=== PATIENT | male | born 1935 | race Two or more races ===

== ENCOUNTER 2017-07-11 10:44 | Outpatient (CLI) | payer OTHER | END 2017-07-11 11:14 | disposition home or self-care (01) | LOC: MRI 10:44 | DX: I63.039 Cerebral infarction due to thrombosis of unspecified carotid artery (principal) | CPT/HCPCS: 70551 ==

== ENCOUNTER 2018-04-11 09:13 | Emergency (ER) | payer OTHER ==
[~2018-04-11] VITALS: Ht 162.6 cm; Wt 64.4 kg
[2018-04-11] MEDS ORDERED: SYNTHROID75 MCG (09:22)
== END 2018-04-11 16:09 | disposition home or self-care (01) ==
LOC: ER 09:13
DX: R10.31 Right lower quadrant pain (principal)

== ENCOUNTER 2019-02-23 11:05 | Outpatient (CLI) | payer OTHER ==
[~2019-02-23 11:05] MED LIST: SYNTHROID75 MCG
== END 2019-02-23 12:44 | disposition home or self-care (01) ==
LOC: TOM 11:05
DX: R42 Dizziness and giddiness (principal); R51 Headache; R41.2 Retrograde amnesia

== ENCOUNTER 2024-04-27 12:50 | Inpatient (IN) | payer OTHER ==
[~2024-04-27] VITALS: Ht 165.1 cm; Wt 60.3 kg
[2024-04-27] MEDS ORDERED: ANTIVERT25 M2 (13:08)
--- NOTE | 2024-04-27 13:08 | NUR ---
PACIENTE ALERTA Y ORIENTADO X3.PACIENTE REFIERE MAREOS Y DEVILIDA CONTASTE.S/V ESTABLE DENDRO DE FITZPATRICK CONDICION .SE LE REALZA EKG .PACIENTE EN ESPERA DE EVALUACION MEDICA.
--- NOTE | 2024-04-27 13:43 | NUR ---
PACIENTE ALERTA Y ORIENTADA X3, SE ORIENTA SOBRE TRATAMIENTO MEDICO INDICA ENTENDER Y ACEPTAR. SE REALIZA CANALIZACION BAJO MEDIDAS ASEPTICAS Y SE ADMINISTRA MEDICAMENTO LETICIA ORDEN MEDICA.
--- NOTE | 2024-04-27 14:32 | NUR ---
SE ORIENTA A PACIENTE SOBRE TRATAMIENTO MEDICO, REFIERE ENTENDER. SE COLECTAN MUESTRAS DE LABORATORIO Y SE CANALIZA A PACIENTE BAJO MEDIDAS ASEPTICAS. SE ENTREGA ENVASE PARA U/A. SE NOTIFICA ESTUDIO ECHO PENDIENTE.
[2024-04-27 14:50] LABS: MEAN CORPUSCULAR HGB CONC 33.9 g/dl (32.0-36.0); PLATELET COUNT 141 K/uL (150-450); RED BLOOD COUNT 1.25 M/uL (4.00-6.00)
[2024-04-27 14:51] LABS: MEAN CORPUSCULAR HEMOGLOBIN 36.8 pg (27.00-32.0)
[2024-04-27 14:52] LABS: HEMOGLOBIN 4.6 g/dL (13-16.00)
[2024-04-27 14:53] LABS: HEMATOCRIT 13.7 % (39.0-48.0)
[2024-04-27 15:01] LABS: BILIRUBIN TOTAL 0.58 mg/dL (0.3-1.2); BILIRUBIN,CONJUGATED 0.22 mg/dL (0.0-0.2); BILIRUBIN,UNCONJUGATED 0.36 mg/dL (0.0-0.6); CALCIUM 8.5 mg/dL (8.5-10.1); CREATININE SERUM 1.01 mg/dL (0.70-1.30); GFR 69.55; GLOBULINA 3.2 G/DL (2.4-3.5); POTASSIUM 3.88 mEq/L (3.5-5.1); TOTAL PROTEIN 6.2 gm/dL (6.4-8.2)
[2024-04-27 15:16] LABS: INR 1.21; PARTIAL THROMBOPLASTIN TIME 25.4 SECONDS (22.0-34.0)
--- NOTE | 2024-04-27 15:23 | NUR ---
SE BERTIN CONSENTIMIENTO DE TRANSFUCION DE TRANSFUCION MD FIRMA CONSENTIMIENTO DE TRANSFUCION. SE REQUISA 4 UNIDADES DE PRBC. SE BERTIN TUBOS PILOS. SE CANALIZA EN YONIS BROOKS # 20. SE ORIENTA A FAMILIAR SOBRE EL PROCESO DE TRANSFUCION Y ESTOS REFIERE ENTENDER
[2024-04-27 15:31] LABS: RED CELL DISTRIBUTION WIDTH 19.1 % (11.5-14.5)
[2024-04-27 15:36] LABS: URINE APPEARANCE Clear; URINE BILIRRUBIN Negative (NEGATIVE); URINE BLOOD Negative; URINE COLOR Yellow; URINE GLUCOSE Negative (NEGATIVE); URINE KETONE Negative (NEGATIVE); URINE LEUKOCYTE Small; URINE NITRATE Negative; URINE PROTEIN Trace (NEGATIVE)
[2024-04-27 15:37] LABS: URINE BACTERIA 412.2 uL (0.0-1933); URINE CAST 1.62 uL (0.0-1.40); URINE WBC 146.4 uL (0.0-23.2)
[2024-04-27 15:38] LABS: URINE RBC 1.3 uL (0.0-20.8)
--- NOTE | 2024-04-27 15:49 | NUR ---
SE CAMBIA REQUISICION DE JULIANNE A FRACCIONADO POR ORDEN DE DR. WARREN
[2024-04-27] MEDS ORDERED: 0.9 % SODIUM CHLORIDE 1,000 ML IV SCH (18:30)
[2024-04-27] MEDS ORDERED: PANTOPRAZOLE SODIUM 40 MG/VIAL VIAL IV SCH (18:30)
[2024-04-27] MEDS ORDERED: ONDANSETRON HCL 4 MG in 0.9 % SODIUM CHLORIDE 50 ML IV PRN (18:30)
[2024-04-27] MEDS ORDERED: FUROsemide 20 MG/2 ML VIAL IV SCH (18:45)
[2024-04-27 20:37] VITALS: BP 112/58; O2SAT 100
[2024-04-27] MEDS ORDERED: METHYLPREDNISOLONE SOD SUCC 125 MG VIAL IV SCH (21:39)
[2024-04-27 22:20] VITALS: BP 151/75
[2024-04-27 23:50] VITALS: BP 119/58; O2SAT 96
[2024-04-28] VITALS (8 sets, daily range): BP systolic 133–138; BP diastolic 62–65; O2SAT 90–100
[2024-04-28] MEDS ORDERED: LEVOTHYROXINE SODIUM 50 MCG TABLET PO SCH (06:00)
[2024-04-28] MEDS ORDERED: LOSARTAN POTASSIUM 50 MG TABLET PO SCH (09:00)
[2024-04-28] MEDS ORDERED: RINGERS SOLUTION,LACTATED 1,000 ML IV SCH (14:00)
[2024-04-28] MEDS ORDERED: DONEPEZIL HCL 10 MG TABLET PO SCH (17:00)
[2024-04-28] MEDS ORDERED: SIMVASTATIN 20 MG TABLET PO SCH (17:00)
[2024-04-28 20:19] LABS: TSH 1.2 uIU/mL (0.358-3.74)
[2024-04-29] VITALS (9 sets, daily range): BP systolic 125–136; BP diastolic 65–70; O2SAT 90–97
[2024-04-29] MEDS ORDERED: MAGNESIUM HYDROXIDE 30 ML BLIST.PACK PO NR (12:40)
[2024-04-29] MEDS ORDERED: MINERAL OIL 30 ML BLIST.PACK PO NR (12:40)
[2024-04-29] MEDS ORDERED: LACTULOSE 20 G/30 ML BLIST.PACK PO NR (12:40)
[2024-04-29 15:41] LABS: ALBUMIN 2.8 gm/dL (3.4-5.0); BILIRUBIN TOTAL 1.03 mg/dL (0.3-1.2); CALCIUM 8.1 mg/dL (8.5-10.1); CREATININE SERUM 0.91 mg/dL (0.70-1.30); GFR 78.45; GLOBULINA 2.7 G/DL (2.4-3.5); MAGNESIUM 1.5 mg/dL (1.8-2.4); PHOSPHOROUS 3.4 mg/dL (2.5-4.9); POTASSIUM 3.41 mEq/L (3.5-5.1); TOTAL PROTEIN 5.5 gm/dL (6.4-8.2)
[2024-04-29 16:11] LABS: HEMATOCRIT 24.4 % (39.0-48.0); MEAN CELL VOLUME 94.5 fL (80.0-100.00); MEAN CORPUSCULAR HGB CONC 34.9 g/dl (32.0-36.0); RED BLOOD COUNT 2.58 M/uL (4.00-6.00); RED CELL DISTRIBUTION WIDTH 19.1 % (11.5-14.5)
[2024-04-29 16:12] LABS: HEMOGLOBIN 8.5 g/dL (13-16.00); MEAN CORPUSCULAR HEMOGLOBIN 32.9 pg (27.00-32.0); PLATELET COUNT 123 K/uL (150-450)
[2024-04-29] MEDS ORDERED: CEFTRIAXONE SODIUM 2,000 MG VIAL IV STA (16:36)
[2024-04-29] MEDS ORDERED: MAGNESIUM SULFATE IN WATER 2 GM/50 ML PIGGYBAG IV STA (17:57)
[2024-04-29] MEDS ORDERED: POTASSIUM BICARBONATE/CIT AC 25 MEQ TABLET.EFF PO NR (18:00)
[2024-04-29] MEDS ORDERED: POTASSIUM CHLORIDE 20MEQ/100ML H2O PB IV NR (20:00)
[2024-04-29] MEDS ORDERED: PIPERACILLIN/TAZOBACTAM SODIUM 3.375 GM VIAL IV SCH (20:00)
[2024-04-29 20:44] LABS: ob POSITIVE (NEGATIVE)
[2024-04-29] MEDS ORDERED: IRON FUM,PS/FOLIC/BCOMP,C NO.9 1 CAP CAPSULE PO SCH (21:00)
[2024-04-29] MEDS ORDERED: DOCUSATE SODIUM 100MG CAP PO SCH (21:00)
[2024-04-30] VITALS (7 sets, daily range): BP systolic 122–154; BP diastolic 60–75; O2SAT 97–100
[2024-04-30] MEDS ORDERED: CEFTRIAXONE SODIUM 2,000 MG VIAL IV SCH (09:00)
[2024-04-30 10:37] LABS: PLATELET ESTIMATE DECREASED (NORMAL)
[2024-04-30] MEDS ORDERED: IRBESARTAN 75 MG TABLET PO NR (13:00)
[2024-04-30 13:10] LABS: FOLIC ACID 7.9 ng/ml (4.78-20)
[2024-04-30 13:30] LABS: HEMATOCRIT 32.7 % (39.0-48.0); HEMOGLOBIN 11.4 g/dL (13-16.00); MEAN CELL VOLUME 92.9 fL (80.0-100.00); MEAN CORPUSCULAR HEMOGLOBIN 32.5 pg (27.00-32.0); MEAN CORPUSCULAR HGB CONC 34.9 g/dl (32.0-36.0); RED BLOOD COUNT 3.52 M/uL (4.00-6.00); RED CELL DISTRIBUTION WIDTH 17.6 % (11.5-14.5)
[2024-04-30 13:35] LABS: PLATELET COUNT 103 K/uL (150-450)
[2024-04-30] MEDS ORDERED: CYANOCOBALAMIN (VITAMIN B-12) 1,000 MCG TABLET PO NR (15:30)
[2024-05-01 00:41] VITALS: BP 128/72; O2SAT 97
[2024-05-01 07:18] LABS: HEMATOCRIT 32.8 % (39.0-48.0); HEMOGLOBIN 11.7 g/dL (13-16.00); MEAN CELL VOLUME 91.7 fL (80.0-100.00); MEAN CORPUSCULAR HEMOGLOBIN 32.7 pg (27.00-32.0); MEAN CORPUSCULAR HGB CONC 35.7 g/dl (32.0-36.0); RED BLOOD COUNT 3.58 M/uL (4.00-6.00); RED CELL DISTRIBUTION WIDTH 17.7 % (11.5-14.5)
[2024-05-01 07:28] LABS: PLATELET COUNT 103 K/uL (150-450)
[2024-05-01 07:52] LABS: ALBUMIN 2.6 gm/dL (3.4-5.0); BILIRUBIN TOTAL 0.83 mg/dL (0.3-1.2); CREATININE SERUM 0.97 mg/dL (0.70-1.30); GFR 72.87; GLOBULINA 2.9 G/DL (2.4-3.5); MAGNESIUM 2.1 mg/dL (1.8-2.4); PHOSPHOROUS 2.9 mg/dL (2.5-4.9); POTASSIUM 3.65 mEq/L (3.5-5.1); TOTAL PROTEIN 5.5 gm/dL (6.4-8.2)
[2024-05-01] MEDS ORDERED: IRBESARTAN 75 MG TABLET PO SCH (09:00)
[2024-05-01] MEDS ORDERED: CYANOCOBALAMIN (VITAMIN B-12) 1,000 MCG TABLET PO SCH (09:00)
[2024-05-01 09:01] VITALS: BP 123/62
[2024-05-01] MEDS ORDERED: AMOX1TAB5 PO (12:55)
[2024-05-01] MEDS ORDERED: ABANEU-SL TABL1 EACH SL (12:55)
[2024-05-01] MEDS ORDERED: INTESTINEX680 M1 PO (12:55)
== END 2024-05-01 13:20 | disposition home or self-care (01) | DRG 812 ==
LOC: ER 12:53 → MEDI 20:03
PROVIDERS: Emergency Medicine; General Practice; ADMIT Internal Medicine; ATTEND Internal Medicine
PROC: 30233N1 Transfusion of Nonautologous Red Blood Cells into Peripheral Vein, Percutaneous Approach (ICD-10-PCS; 2024-04-27)
PROC: BW28ZZZ Computerized Tomography (CT Scan) of Head (ICD-10-PCS; 2024-04-27)
PROC: 4A12X4Z Monitoring of Cardiac Electrical Activity, External Approach (ICD-10-PCS; principal; 2024-04-28)
PROC: BW21YZZ Computerized Tomography (CT Scan) of Abdomen and Pelvis using Other Contrast (ICD-10-PCS; 2024-04-28)
PROC: B24BZZZ Ultrasonography of Heart with Aorta (ICD-10-PCS; 2024-04-28)
DX: D64.9 Anemia, unspecified (principal); N39.0 Urinary tract infection, site not specified; J90 Pleural effusion, not elsewhere classified; R55 Syncope and collapse; E87.6 Hypokalemia; I48.0 Paroxysmal atrial fibrillation; I10 Essential (primary) hypertension; E03.9 Hypothyroidism, unspecified; D69.6 Thrombocytopenia, unspecified; D53.9 Nutritional anemia, unspecified; B95.2 Enterococcus as the cause of diseases classified elsewhere; D53.1 Other megaloblastic anemias, not elsewhere classified; N20.0 Calculus of kidney; Z91.81 History of falling

== ENCOUNTER 2024-05-27 17:50 | Inpatient (IN) | payer OTHER ==
[~2024-05-27] VITALS: Ht 165.1 cm; Wt 60.3 kg
[~2024-05-27 17:50] MED LIST changes: +ABANEU-SL TABL1 EACH SL; +AMOX1TAB5 PO; +ANTIVERT25 M2; +INTESTINEX680 M1 PO
[2024-05-27] MEDS ORDERED: LOSARTAN POTASS50 MG PO (18:21)
--- NOTE | 2024-05-27 18:22 | NUR ---
SE RECIBE PTE ALERTA, ORIENTADO X3. PTE REFIERE HEMOGLOBINA EN 7 LETICIA RESULTADO DE LABORATORIO REALIZADO EL SERENITY DE HOY. SE MIDEN S/V Y SE UBICA.
--- NOTE | 2024-05-27 18:49 | NUR ---
PTE EVALUADO POR LA DRA. READ. RN PRUITT CANALIZA Y COLECTA MUESTRAS DE LAB LETICIA ORDEN MEDICA BAJO MEIDDAS ASEPTICAS. SE NOTIFICA XRAY PENDINETE.
[2024-05-27 18:55] LABS: MEAN CELL VOLUME 93.2 fL (80.0-100.00); PLATELET COUNT 177 K/uL (150-450); RED CELL DISTRIBUTION WIDTH 17.8 % (11.5-14.5)
[2024-05-27 19:08] LABS: MEAN CORPUSCULAR HEMOGLOBIN 31.7 pg (27.00-32.0)
[2024-05-27 19:09] LABS: HEMATOCRIT 21.4 % (39.0-48.0)
[2024-05-27 19:11] LABS: HEMOGLOBIN 7.3 g/dL (13-16.00)
[2024-05-27 19:13] LABS: INR 1.11; PARTIAL THROMBOPLASTIN TIME 26.8 SECONDS (22.0-34.0)
[2024-05-27 19:17] LABS: ALBUMIN 3.3 gm/dL (3.4-5.0); BILIRUBIN TOTAL 0.53 mg/dL (0.3-1.2); CALCIUM 8.6 mg/dL (8.5-10.1); CREATININE SERUM 0.87 mg/dL (0.70-1.30); GFR 82.62; GLOBULINA 3.4 G/DL (2.4-3.5); TOTAL PROTEIN 6.7 gm/dL (6.4-8.2)
[2024-05-27 20:12] LABS: URINE APPEARANCE Clear; URINE BILIRRUBIN Negative (NEGATIVE); URINE BLOOD Negative; URINE COLOR Dark Yellow; URINE GLUCOSE Negative (NEGATIVE); URINE KETONE Negative (NEGATIVE); URINE LEUKOCYTE Moderate; URINE NITRATE Negative; URINE PROTEIN Trace (NEGATIVE)
[2024-05-27 20:16] LABS: URINE BACTERIA 532.3 uL (0.0-1933); URINE EPITHELIAL CELLS 8.3 uL (0.0-38.8); URINE WBC 274.5 uL (0.0-23.2)
--- NOTE | 2024-05-27 20:22 | NUR ---
SE NELDA TUBOS PILOTOS Y SE REQUISA 2 UNIDADES DE PRBC. SE LLENA REQUISION Y SE LLEVA A LABORATORIO. PTE FIRMA COSENTIMINETO Y SE COLOCA EN RECOR DE PTE. PTE SON RECORD PREVIO EN BANCO DE JULIANNE.
[2024-05-27 20:45] LABS: URINE CAST 1.32 uL (0.0-1.40); URINE RBC 1.1 uL (0.0-20.8)
[2024-05-27] MEDS ORDERED: PANTOPRAZOLE SODIUM 40 MG/VIAL VIAL IV SCH (21:34)
[2024-05-27] MEDS ORDERED: ACETAMINOPHEN 500 MG GEL..CAP PO PRN (21:45)
[2024-05-27] MEDS ORDERED: 0.9 % SODIUM CHLORIDE 1,000 ML IV SCH (21:45)
[2024-05-27] MEDS ORDERED: FUROsemide 20 MG/2 ML VIAL IV SCH (22:00)
[2024-05-27 23:54] VITALS: BP 148/55
[2024-05-28 02:46] VITALS: BP 116/61; O2SAT 97
[2024-05-28 07:25] LABS: MEAN CELL VOLUME 92.5 fL (80.0-100.00); MEAN CORPUSCULAR HGB CONC 34.9 g/dl (32.0-36.0); PLATELET COUNT 171 K/uL (150-450); RED BLOOD COUNT 2.01 M/uL (4.00-6.00); RED CELL DISTRIBUTION WIDTH 17.4 % (11.5-14.5)
[2024-05-28 07:34] LABS: MEAN CORPUSCULAR HEMOGLOBIN 32.3 pg (27.00-32.0)
[2024-05-28 07:45] LABS: HEMATOCRIT 18.6 % (39.0-48.0); HEMOGLOBIN 6.5 g/dL (13-16.00)
[2024-05-28] MEDS ORDERED: LOSARTAN POTASSIUM 50 MG TABLET PO SCH (09:00)
[2024-05-28 09:56] VITALS: BP 124/63; O2SAT 98
[2024-05-28 17:07] VITALS: BP 121/64
[2024-05-28] MEDS ORDERED: PANTOPRAZOLE SODIUM 40 MG/VIAL VIAL IV SCH (21:00)
[2024-05-29 01:30] VITALS: BP 133/71; O2SAT 94
[2024-05-29 08:20] VITALS: BP 149/74; O2SAT 92
[2024-05-29 09:24] LABS: HEMOGLOBIN 11.1 g/dL (13-16.00); MEAN CELL VOLUME 87.8 fL (80.0-100.00); MEAN CORPUSCULAR HEMOGLOBIN 30.3 pg (27.00-32.0); MEAN CORPUSCULAR HGB CONC 34.5 g/dl (32.0-36.0); PLATELET COUNT 162 K/uL (150-450); RED BLOOD COUNT 3.65 M/uL (4.00-6.00); RED CELL DISTRIBUTION WIDTH 16.4 % (11.5-14.5)
[2024-05-29 11:18] LABS: ob NEGATIVE (NEGATIVE)
[2024-05-29] MEDS ORDERED: INTEGRA PLUS C1 EACH PO (14:17)
[2024-05-29] MEDS ORDERED: COZAAR50 MG PO (14:17)
[2024-05-31 13:36] LABS: FOLIC ACID 19.4 ng/ml (4.78-20)
== END 2024-05-29 15:10 | disposition home or self-care (01) | DRG 812 ==
LOC: ER 17:52 → MEDI 22:03
PROVIDERS: General Practice; ADMIT Internal Medicine; ATTEND Internal Medicine
PROC: BW21ZZZ Computerized Tomography (CT Scan) of Abdomen and Pelvis (ICD-10-PCS; principal; 2024-05-27)
DX: D64.9 Anemia, unspecified (principal); I10 Essential (primary) hypertension

== ENCOUNTER 2024-06-22 14:44 | Inpatient (IN) | payer OTHER ==
[~2024-06-22] VITALS: Ht 167.6 cm; Wt 58.1 kg
[~2024-06-22 14:44] MED LIST changes: +COZAAR50 MG PO; +INTEGRA PLUS C1 EACH PO; +LOSARTAN POTASS50 MG PO
--- NOTE | 2024-06-22 15:45 | NUR ---
PTE ALERTA Y ORIENTADO EN COMPANIA DE FITZPATRICK HIJA VIENE A GURPREET POR ORDEN MEDICA POR EL MD. GOODMAN EL PTE TONA 7.4 DE HEMOGLOBINA S CITLALI NELDA S/V Y SE UBICA
--- NOTE | 2024-06-22 17:40 | NUR ---
SE EDUCA A PTE SOBRE TX MEDICO, SE NELDA MUESTRAS DE LABORATORIO UTILIZANDO MEDIDAS ASEPTICAS. SE COLOCA H/L ALYSSA DE EDEMA. SE NOTIFICA ESTUDIO DE RX PENDIENTE.
[2024-06-22 17:55] LABS: ALBUMIN 3.5 gm/dL (3.4-5.0); BILIRUBIN TOTAL 0.46 mg/dL (0.3-1.2); CALCIUM 8.5 mg/dL (8.5-10.1); CREATININE SERUM 0.86 mg/dL (0.70-1.30); GFR 83.73; GLOBULINA 3.7 G/DL (2.4-3.5); POTASSIUM 4.2 mEq/L (3.5-5.1); TOTAL PROTEIN 7.2 gm/dL (6.4-8.2)
[2024-06-22 17:58] LABS: BASO % 0.1 % (0.1-1.2); EOS # 0.12 (0.04-0.54); EOS % 1.7 % (0.7-7.0); LYMPH # 4.73 (1.18-3.74); LYMPH % 68.8 % (19.3-53.1); MEAN CORPUSCULAR HEMOGLOBIN 28.9 pg (25.6-32.2); MONO # 0.29 (0.24-0.82); MONO % 4.2 % (4.7-12.5); NEUT # 1.69 (1.56-6.13); NEUT % 24.6 % (34.0-71.1); PLATELET COUNT 173 K/uL (163-369); RED BLOOD COUNT 2.39 M/uL (4.63-6.08); RED CELL DISTRIBUTION WIDTH 16.3 % (11.6-14.4)
[2024-06-22 18:10] LABS: HEMATOCRIT 20.7 % (40.1-51.0)
[2024-06-22 18:12] LABS: HEMOGLOBIN 6.9 g/dL (13.7-17.5)
[2024-06-22 18:16] LABS: INR 1.13; PARTIAL THROMBOPLASTIN TIME 26.1 SECONDS (22.0-34.0); PROTHROMBIN TIME 12.2 SECONDS (9.0-11.5)
[2024-06-22] MEDS ORDERED: FUROsemide 20 MG/2 ML VIAL IV SCH (20:30)
[2024-06-22] MEDS ORDERED: 0.9 % SODIUM CHLORIDE 1,000 ML IV SCH (20:30)
[2024-06-22] MEDS ORDERED: ACETAMINOPHEN 500 MG GEL..CAP PO PRN (20:30)
[2024-06-22] MEDS ORDERED: ONDANSETRON HCL 4 MG in 0.9 % SODIUM CHLORIDE 50 ML IV PRN (20:30)
[2024-06-23 03:05] VITALS: BP 109/54; O2SAT 96
[2024-06-23] MEDS ORDERED: FAMOTIDINE/PF 20 MG/2 ML VIAL ONE (08:18)
[2024-06-23] MEDS ORDERED: LOSARTAN POTASSIUM 50 MG TABLET PO SCH (09:00)
[2024-06-23] MEDS ORDERED: FAMOTIDINE/PF 20 MG in 0.9 % SODIUM CHLORIDE 8 ML IV PUSH SCH (09:00)
[2024-06-23] MEDS ORDERED: IRON FUM,PS/FOLIC/BCOMP,C NO.9 1 CAP CAPSULE PO SCH (09:00)
[2024-06-23 10:02] VITALS: BP 117/64; O2SAT 98
[2024-06-23 16:45] LABS: URINE APPEARANCE Clear; URINE BILIRRUBIN Negative (NEGATIVE); URINE BLOOD Negative; URINE COLOR Yellow; URINE GLUCOSE Negative (NEGATIVE); URINE KETONE Negative (NEGATIVE); URINE LEUKOCYTE Small; URINE NITRATE Negative; URINE PROTEIN Negative (NEGATIVE)
[2024-06-23 16:46] LABS: URINE BACTERIA 204.1 uL (0.0-1933); URINE WBC 27.3 uL (0.0-23.2)
[2024-06-23 16:50] LABS: ob NEGATIVE (NEGATIVE)
[2024-06-23 16:56] LABS: URINE EPITHELIAL CELLS 1.2 uL (0.0-38.8); URINE RBC 0.2 uL (0.0-20.8)
[2024-06-23 17:04] VITALS: BP 123/73; O2SAT 96
[2024-06-24 00:47] VITALS: BP 95/55; O2SAT 91
[2024-06-24 08:12] VITALS: BP 120/66; O2SAT 97
[2024-06-24 17:51] VITALS: BP 107/55; O2SAT 96
[2024-06-25] VITALS: BP 117/62; O2SAT 94
[2024-06-25 07:19] LABS: BASO % 0.2 % (0.1-1.2); EOS # 0.33 (0.04-0.54); EOS % 3.7 % (0.7-7.0); HEMOGLOBIN 11.2 g/dL (13.7-17.5); LYMPH # 6.29 (1.18-3.74); LYMPH % 70.5 % (19.3-53.1); MEAN CORPUSCULAR HEMOGLOBIN 28.9 pg (25.6-32.2); MONO # 0.47 (0.24-0.82); MONO % 5.3 % (4.7-12.5); NEUT # 1.79 (1.56-6.13); NEUT % 20.1 % (34.0-71.1); PLATELET COUNT 151 K/uL (163-369); RED BLOOD COUNT 3.87 M/uL (4.63-6.08); RED CELL DISTRIBUTION WIDTH 15.5 % (11.6-14.4)
[2024-06-25 08:20] VITALS: BP 134/62; O2SAT 96
[2024-06-25] MEDS ORDERED: INTEGRA PLUS C1 EACH PO (11:35)
[2024-06-25] MEDS ORDERED: COZAAR50 MG PO (11:35)
== END 2024-06-25 12:23 | disposition home or self-care (01) | DRG 841 ==
LOC: ER 15:11 → MEDI 21:11 → SEC-K 21:11 → MEDI 06-23 01:02
PROVIDERS: General Practice; ADMIT Internal Medicine; ATTEND Internal Medicine
PROC: 30233N1 Transfusion of Nonautologous Red Blood Cells into Peripheral Vein, Percutaneous Approach (ICD-10-PCS; principal; 2024-06-23)
DX: C91.Z0 Other lymphoid leukemia not having achieved remission (principal); N39.0 Urinary tract infection, site not specified; D64.89 Other specified anemias; I10 Essential (primary) hypertension; E78.5 Hyperlipidemia, unspecified; E03.9 Hypothyroidism, unspecified

== ENCOUNTER 2024-07-23 10:28 | Inpatient (IN) | payer OTHER ==
[~2024-07-23] VITALS: Ht 165.1 cm; Wt 56.7 kg
--- NOTE | 2024-07-23 10:38 | NUR ---
PTE REFIERE LABORATORIO DEL SERENITY DE SHEREE PRESENTANDO HGB 6.0 Y MAREOS.
[2024-07-23] MEDS ORDERED: 0.9 % SODIUM CHLORIDE 1,000 ML IV SCH (11:00)
--- NOTE | 2024-07-23 12:25 | NUR ---
SE ORIENT A PTE Y FAMILIAR SOBRE TX MEDICO PTE REFIERE ENTENDER Y ACEPTAR. SE CANALIZA A PTE EN BRAZO AAKASH CON ANGIOS #20 Y #24, SE RECOLECTAN MUESTRAS DE LAB Y SE ADMISNITRAN MEDICAMENTOS SE GUN ORDEN MEDICA BAJO MEDIDAS ASEPTICAS.
[2024-07-23 12:32] LABS: BASO % 0.2 % (0.1-1.2); EOS # 0.09 (0.04-0.54); EOS % 1.9 % (0.7-7.0); LYMPH # 3.05 (1.18-3.74); MEAN CORPUSCULAR HEMOGLOBIN 28.4 pg (25.6-32.2); MONO # 0.34 (0.24-0.82); NEUT # 1.33 (1.56-6.13); NEUT % 27.5 % (34.0-71.1); PLATELET COUNT 195 K/uL (163-369); RED BLOOD COUNT 2.36 M/uL (4.63-6.08); RED CELL DISTRIBUTION WIDTH 16.3 % (11.6-14.4)
[2024-07-23 12:50] LABS: CALCIUM 8.8 mg/dL (8.5-10.1); CREATININE SERUM 0.84 mg/dL (0.70-1.30); GFR 86.04; POTASSIUM 4.33 mEq/L (3.5-5.1)
[2024-07-23 13:21] LABS: HEMATOCRIT 20.3 % (40.1-51.0)
[2024-07-23 13:22] LABS: HEMOGLOBIN 6.7 g/dL (13.7-17.5)
[2024-07-23 13:41] LABS: URINE CAST 1.91 uL (0.0-1.40); URINE EPITHELIAL CELLS 4.2 uL (0.0-38.8); URINE WBC 99.7 uL (0.0-23.2)
[2024-07-23 13:48] LABS: URINE RBC 0.7 uL (0.0-20.8)
[2024-07-23 14:06] LABS: URINE BILIRRUBIN NEGATIVE (NEGATIVE); URINE BLOOD NEGATIVE; URINE GLUCOSE NEGATIVE (NEGATIVE); URINE KETONE NEGATIVE (NEGATIVE); URINE LEUKOCYTE NEGATIVE; URINE NITRATE NEGATIVE; URINE PROTEIN NEGATIVE (NEGATIVE); URINE UROBILINOGEN 0.2 E.U./dl
[2024-07-23 14:12] LABS: URINE APPEARANCE CLEAR; URINE COLOR YELLOW
[2024-07-23] MEDS ORDERED: ACETAMINOPHEN 325 MG TABLET PO PRN (17:30)
[2024-07-23 17:59] VITALS: BP 139/67; O2SAT 96
[2024-07-23 20:53] VITALS: BP 138/76; O2SAT 97
[2024-07-23 21:53] LABS: COVID-19 AG NEGATIVE (NEGATIVE)
[2024-07-24 00:42] VITALS: BP 155/88; O2SAT 98
[2024-07-24] MEDS ORDERED: LEVOTHYROXINE SODIUM 50 MCG TABLET PO SCH (06:00)
[2024-07-24 08:00] VITALS: BP 134/65; O2SAT 97
[2024-07-24] MEDS ORDERED: LOSARTAN POTASSIUM 50 MG TABLET PO SCH (09:00)
[2024-07-24] MEDS ORDERED: IRON FUM,PS/FOLIC/BCOMP,C NO.9 1 CAP CAPSULE PO SCH (09:00)
[2024-07-24 16:00] VITALS: BP 121/66; O2SAT 95
[2024-07-24] MEDS ORDERED: SIMVASTATIN 20 MG TABLET PO SCH (17:00)
[2024-07-25 00:57] VITALS: BP 153/75; O2SAT 94
[2024-07-25 08:20] VITALS: BP 160/65; O2SAT 96
[2024-07-25] MEDS ORDERED: ONDANSETRON HCL 2 MG/ML VIAL IV PRN (13:30)
[2024-07-25 16:00] VITALS: BP 158/69; O2SAT 95
[2024-07-26] VITALS: BP 100/61; O2SAT 94
[2024-07-26] MEDS ORDERED: IPRATROPIUM BROMIDE 0.5 MG/2.5 ML AMPUL.NEB IH SCH (08:00)
[2024-07-26] MEDS ORDERED: GUAIFENESIN 200 MG/10 ML BLIST.PACK PO SCH (08:00)
[2024-07-26 08:57] VITALS: BP 102/59; O2SAT 96
[2024-07-26] MEDS ORDERED: CEFTRIAXONE SODIUM 2,000 MG VIAL IV SCH (09:00)
[2024-07-26 16:20] VITALS: BP 152/81; O2SAT 99
[2024-07-26 18:36] LABS: BASO % 0.4 % (0.1-1.2); EOS # 0.01 (0.04-0.54); EOS % 0.1 % (0.7-7.0); HEMOGLOBIN 12.1 g/dL (13.7-17.5); LYMPH # 4.46 (1.18-3.74); LYMPH % 48.5 % (19.3-53.1); MEAN CORPUSCULAR HEMOGLOBIN 28.5 pg (25.6-32.2); MONO % 5.4 % (4.7-12.5); NEUT # 4.08 (1.56-6.13); NEUT % 44.5 % (34.0-71.1); RED BLOOD COUNT 4.25 M/uL (4.63-6.08); RED CELL DISTRIBUTION WIDTH 16.1 % (11.6-14.4)
[2024-07-26 18:37] LABS: PLATELET COUNT 123 K/uL (163-369)
[2024-07-26 19:10] LABS: URINE APPEARANCE Clear; URINE BILIRRUBIN Negative (NEGATIVE); URINE BLOOD Large; URINE COLOR Dark Yellow; URINE GLUCOSE Negative (NEGATIVE); URINE KETONE 15 (NEGATIVE); URINE LEUKOCYTE Small; URINE NITRATE Negative; URINE PROTEIN 30 (NEGATIVE)
[2024-07-26 19:14] LABS: URINE BACTERIA 622.8 uL (0.0-1933); URINE EPITHELIAL CELLS 2.6 uL (0.0-38.8); URINE RBC 2034.3 uL (0.0-20.8); URINE WBC 177.8 uL (0.0-23.2)
[2024-07-27 01:20] VITALS: BP 135/80; O2SAT 96
[2024-07-27 08:41] VITALS: BP 116/62; O2SAT 96
[2024-07-27 16:00] VITALS: BP 109/65; O2SAT 94
[2024-07-28 01:43] VITALS: BP 115/68; O2SAT 97
[2024-07-28 08:50] VITALS: BP 100/64; O2SAT 95
== END 2024-07-28 11:05 | disposition home or self-care (01) | DRG 842 ==
LOC: ER 10:28 → SURH 18:22
PROVIDERS: Emergency Medicine; General Practice; ADMIT Internal Medicine; ATTEND Internal Medicine
PROC: 30233N1 Transfusion of Nonautologous Red Blood Cells into Peripheral Vein, Percutaneous Approach (ICD-10-PCS; principal; 2024-07-23)
PROC: 8E0ZXY6 Isolation (ICD-10-PCS; 2024-07-23)
PROC: BT43ZZZ Ultrasonography of Bilateral Kidneys (ICD-10-PCS; 2024-07-25)
PROC: 3E0F7GC Introduction of Other Therapeutic Substance into Respiratory Tract, Via Natural or Artificial Opening (ICD-10-PCS; 2024-07-26)
DX: C91.Z0 Other lymphoid leukemia not having achieved remission (principal); D64.89 Other specified anemias; R31.0 Gross hematuria; R05.9 Cough, unspecified; I10 Essential (primary) hypertension; E78.5 Hyperlipidemia, unspecified; E03.9 Hypothyroidism, unspecified